=== PATIENT | female | born 1960 | race Caucasian/White ===

== ENCOUNTER → 2016-10-29 | Outpatient (CLI) | payer OTHER ==
--- NOTE | 2016-10-29 09:29 | DI ---
XR FOOT COMPLETE MIN 3VW,10/29/2016 8:48 AM: Clinical History: Right foot pain. Previous Exam: None at this facility. Findings: 3 views of the right foot are obtained, and demonstrate a minimally displaced right fifth proximal me tatarsal avulsion fracture. The surrounding soft tissues demonstrates mild prominence over the lateral foot. Impression: Slightly displaced right fifth proximal metatarsal avulsion fracture.
== END ==
LOC: MOB RAD 08:52
PROVIDERS: ATTEND Physician Assistant
DX: M79.671 Pain in right foot (principal); S92.354A Nondisplaced fracture of fifth metatarsal bone, right foot, initial encounter for closed fracture; W18.43XA Slipping, tripping and stumbling without falling due to stepping from one level to another, initial encounter
CPT/HCPCS: 73630

== ENCOUNTER → 2016-11-21 | Outpatient (CLI) | payer OTHER ==
[2016-11-21 11:15] LABS: BASOPHILS # (AUTO) 0.01 10*3/UL; BASOPHILS % (AUTO) 0.2 % (0-1); EOSINOPHILS % (AUTO) 1.2 % (0-8); HEMATOCRIT 41.2 % (37.0-47.0); HEMOGLOBIN 13.6 g/dL (12.0-16.0); IMM GRAN % (AUTO) 0 % (0-5); IMM GRAN# (AUTO) 0 10*3/UL; LYMPHOCYTES # (AUTO) 1.37 10*3/uL; MEAN CORPUSCULAR HEMOGLOBIN 29.8 PG (27-31); MONOCYTES # (AUTO) 0.35 10*3/UL (0.3-0.8); MONOCYTES % (AUTO) 7.1 % (5-15); NEUTROPHILS # (AUTO) 3.11 10*3/UL; NEUTROPHILS % (AUTO) 63.5 % (50-80); RDW COEFFICIENT OF VARIATION 14.5 % (11.5-14.5); RED BLOOD COUNT 4.57 10^6/uL (4.20-5.40)
[2016-11-21 11:21] LABS: PLATELET MORPHOLOGY COMMENT NORMAL MORPHOLOGY (NORM)
[2016-11-21 11:36] LABS: ASPARTATE AMINO TRANSFERASE 23 IU/L (8-39); BILIRUBIN,TOTAL 0.5 mg/dL (0.3-1.2); BLOOD UREA NITROGEN 14 mg/dL (7-22); CALCIUM 9.4 mg/dL (8.7-10.7); CHLORIDE 103 meq/L (98-112); CREATININE 0.7 mg/dL (0.50-1.20); EST GLOMERULAR FILTRATION > 60 (>60 ml/min/1.73m(2)); GLUCOSE 90 mg/dL (78-110); POTASSIUM 4.2 meq/L (3.8-5.2); SODIUM 141 meq/L (135-145); TOTAL PROTEIN 7.3 g/dL (6.1-8.0)
--- NOTE | 2016-11-21 15:38 | EKG ---
[address] [place] [address] Measurements Intervals [place]ory Rate: 66 P: 56 VT: 138 QRS: -52 QRSD: 90 T: 33 QT: 429 QTc: 442 Interpretive Statements SINUS RHYTHM MARKED LEFT AXIS DEVIATION [QRS AXIS < -30] LOW QRS VOLTAGE IN PRECORDIAL LEADS [QRS DEFLECTION < 1.0 mV IN CHEST LEADS] PATTERN CONSISTENT WITH PULMONARY DISEASE No previous ECG available for comparison Electronically Signed On 11-22-16 17:13:39 MST by Oskar Torrez [id number]
== END ==
LOC: LAB 10:55
PROVIDERS: ATTEND Orthopaedic Surgery
DX: Z01.812 Encounter for preprocedural laboratory examination (principal); Z01.810 Encounter for preprocedural cardiovascular examination; S92.351A Displaced fracture of fifth metatarsal bone, right foot, initial encounter for closed fracture
CPT/HCPCS: 36415; 80053; 85025; 93005; 93010